=== PATIENT | male | born 1975 | race Caucasian/White ===

== ENCOUNTER → 2020-04-23 08:52 | Outpatient (BNVA) | payer OTHER, SELFPAY | PROVIDERS: PCP Physician Assistant; Referring Provider Physician Assistant; Visit Provider Urology | DX: N40.1 Benign prostatic hyperplasia with lower urinary tract symptoms (principal); N52.1 Erectile dysfunction due to diseases classified elsewhere; N50.89 Other specified disorders of the male genital organs | CPT/HCPCS: 81003 ==

== ENCOUNTER 2020-10-20 20:40 | Emergency (ER) | payer OTHER, SELFPAY ==
[2020-10-20] VITALS (8 sets, daily range): BP systolic 134–174; BP diastolic 90–133; PULSE 67–93; RESP 9–20; TEMP 36.3; O2SAT 91–96; BMI 25.8
--- NOTE | 2020-10-20 20:52 | W.ED.AMS ---
HPI - Altered Mental Status General: Chief Complaint: Altered Mental Status Stated Complaint: AMS Time Seen by Provider: 10/20/20 20:51 History of Present Illness: HPI narrative: Mr. Landon is a 45-year-old gentleman without pertinent past medical history presents to the emergency department due to altered mental status. Reportedly he was picked up by EMS where he is found unresponsive and responded to Narcan. Patient denies substance abuse and endorses being in the hot sun all day. He otherwise denies changes in health. Cannot think of any specific exacerbating or alleviating factors. History is otherwise limited by relative somnolence. Review of Systems General: Reports: 10 or more systems reviewed and unremarkable except in HPI and below Narrative: Limited due to mental status change PFS ED PFSH: Medical History BPH loc w urin obs/LUTS Erectile dysfunction due to diseases classified elsewhere Hypertension Scrotal mass Family History Family/Other CAD (coronary artery disease) Hypertension Lung disease Diabetes Social History Smoking and tobacco status: current every day smoker smokeless tobacco Alcohol intake: never Marital status: Single Current occupational status: employed Physical Exam Narrative: EXAM NARRATIVE: GENERAL/CONSTITUTIONAL -somewhat ill appearing. No acute distress. Somnolent Eyes - PERRL, no conjunctival injection ENMT - Atraumatic external nose and ears. Moist mucous membranes NECK - supple. trachea midline CARDIOVASCULAR - regular rate and rhythm. Peripheral pulses 2+ and equal RESPIRATORY -clear to auscultation bilaterally. No retractions or accessory muscle use. ABDOMEN/GI - Nontender, Nondistended. No tenderness to percussion or evidence of peritonitis MSK - Extremities without obvious deformity or tenderness to palpation SKIN - Warm, Dry NEURO - alert but somnolent and disoriented. Patient moves all extremities equally. On cranial nerve exam the patient is noted to have disconjugate gaze. Course ED course: - Patient was seen and evaluated by me at bedside - Patient placed on cardiac monitors, IV access obtained - Initial evaluation notable for abdomen - Labs and imaging obtained and reviewed - Labs notable for no significant abnormality to explain the patient's symptoms. - Imaging notable for subdural hemorrhages. As such and given patient's mental status patient was sent back to CT scanner and no additional traumatic injuries were identified. - Transfer arrangements were started immediately upon notification of CT results -The patient had decreased respiratory rate and Narcan given. - Upon serial reexamination after treatment the patient was mildly improved though patient's mental status and respiratory status remained concerning - Based on patient history, evaluation, labs, and imaging as interpreted the most likely cause of the patient's condition is subdural hemorrhages of unclear etiology though given history traumatic mechanism is considered most likely - The results of ED evaluation were discussed with the patient including plan for transfer due to requirement for level of care not available if discharged to prevent significant worsening/deterioration. -Patient to the emergency department with area EMS crew mildly improved with improvement in consistent respiratory rate. Vital Signs: Vital signs: Vital Signs Temperature 97.4 F L 10/20/20 20:41 Pulse Rate 73 10/20/20 23:40 Respiratory Rate 12 10/20/20 23:40 Blood Pressure 149/94 10/20/20 23:40 Pulse Oximetry 96 10/20/20 23:40 MDM - Altered Mental Status Medical Records: Attestation: I reviewed the patient's medical records. Lab Data: Attestation: I reviewed the patient's lab results. Labs: Lab Results 10/20/20 10/20/20 10/20/20 Range/Units 20:10 20:10 22:16 WBC 9.6 (4.0-10.0) 10^3/ uL RBC 6.05 H (4.1-5.3) 10^6/u L Hgb 17.7 H (11.7-16.6) g/dL Hct 55.1 H (42.0-52.0) % MCV 91.1 (80-94) fl MCH 29.3 (28.0-34.0) pg MCHC 32.1 (30.0-36.0) g/dL RDW 13.2 (12.1-15.1) % Plt Count 287 (130-400) 10^3/c mm MPV 10.5 H (7.4-10.4) fL Neut % (Auto) 46.7 % Lymph % (Auto) 42.7 % [place] % (Auto) 6.9 % Eos % (Auto) 2.6 % Baso % (Auto) 0.7 % Neut # (Auto) 4.47 (1.8-7.7) 10^3/u L Lymph # (Auto) 4.1 (0.8-4.8) 10^3/u L [place] # (Auto) 0.7 (0.2-0.9) 10^3/u L Eos # (Auto) 0.3 (0.0-0.8) 10^3/u L Baso # (Auto) 0.1 (0.0-0.1) 10^3/u L Nucleated RBC % (a uto) 0 % Nucleated RBCs # 0.0 /100WBC Sodium 139 (136-145) mmol/L Potassium 4.1 (3.5-5.1) mmol/L Chloride 99 (98-107) mmol/L Carbon Dioxide 27 (22-29) mmol/L Anion Gap 17.1 (5-19) BUN 8 (6-20) mg/dL Creatinine 1.5 H (0.7-1.2) mg/dL GFR Calculation 50.2 L (90-130) mL/min Glucose 147 H (65-115) mg/dL POC Glucose 86 (70-110) mg/dL Calculated Osmolal ity 289 (285-295) mOsm/k g Calcium 9.7 (8.5-10.5) mg/dL Salicylates < 0.3 L (3-10) mg/dL Acetaminophen < 5.0 L (10-30) ug/mL Ethyl Alcohol < 10 (0-10) mg/dL Critical Care Time Critical Care Time: Critical Care Time: Yes Total Critical Care Time: 35 Attestation: Due to a high probability of clinically significant, life threatening deterioration, the patient required my highest level of preparedness to intervene emergently and I personally spent this critical care time directly and personally managing the patient. This critical care time included obtaining a history; examining the patient; pulse oximetry; ordering and review of laboratory and imaging studies; arranging urgent treatment with development of a management plan; evaluation of patient's response to treatment; frequent reassessment; and, discussions with other providers. Time was exclusive of separately billable procedures and treating other patients and teaching time. 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
--- NOTE | 2020-10-20 20:58 | XRR_ITS ---
PROCEDURE INFORMATION: Exam: XR Chest Exam date and time: 10/20/2020 8:58 PM Age: 45 years old Clinical indication: Shortness of breath; Patient HX: AMS; Additional info: Hypoxemia TECHNIQUE: Imaging protocol: XR of the chest. Views: 1 view. COMPARISON: No relevant prior studies available. FINDINGS: Lungs: Unremarkable. No consolidation. Pleural spaces: Unremarkable. No pleural effusion. No pneumothorax. Heart/Mediastinum: Unremarkable. No cardiomegaly. Bones/joints: Unremarkable. XR/XR chest 1V portable [id number] IMPRESSION: No acute findings.
--- NOTE | 2020-10-20 20:59 | CTR_ITS ---
PROCEDURE INFORMATION: Exam: CT Head Without Contrast Exam date and time: 10/20/2020 8:59 PM Age: 45 years old Clinical indication: Altered mental status/memory loss; Patient HX: PT found unrepsponsive at gas station. ; Additional info: AMS TECHNIQUE: Imaging protocol: Computed tomography of the head without contrast. Radiation optimization: All CT scans at this facility use at least one of these dose optimization techniques: automated exposure control; mA and/or kV adjustment per patient size (includes targeted exams where dose is matched to clinical indication); or iterative reconstruction. COMPARISON: No relevant prior studies available. RADIATION DOSE METRICS: Total DLP (mGy-cm): 1271.34 FINDINGS: Brain: Subdural in the interhemispheric fissure posteriorly measuring 4 mm in thickness. Small acute subdural in bilateral tentorial leaflets measure 3 mm in maximal thickness. Cerebral ventricles: No ventriculomegaly. Paranasal sinuses: Visualized sinuses are unremarkable. No fluid levels. Mastoid air cells: Visualized mastoid air cells are well aerated. Bones/joints: Unremarkable. No acute fracture. Soft tissues: Unremarkable. CT/CT head wo con* [id number] IMPRESSION: Acute subdural hemorrhages in bilateral tentorial leaflets measuring 3 mm in maximal thickness. Small acute subdural hemorrhage in the posterior interhemispheric fissure measuring 4 mm in thickness. Radiation Dose CTDIVOL = (mGy): DLP = 1271.34 (mGy-cm)
[2020-10-20 21:06] LABS: Basophils # 0.1 10^3/uL (0.0-0.1); Basophils % 0.7 %; Eosinophils # 0.3 10^3/uL (0.0-0.8); Eosinophils % 2.6 %; Hematocrit 55.1 % (42.0-52.0); Hemoglobin 17.7 g/dL (11.7-16.6); Lymphocytes # 4.1 10^3/uL (0.8-4.8); Lymphocytes % 42.7 %; Mean Corpuscular HGB Conc 32.1 g/dL (30.0-36.0); Mean Corpuscular Hemoglobin 29.3 pg (28.0-34.0); Mean Corpuscular Volume 91.1 fl (80-94); Mean Platelet Volume 10.5 fL (7.4-10.4); Monocytes # 0.7 10^3/uL (0.2-0.9); Monocytes % 6.9 %; Neutrophils # 4.47 10^3/uL (1.8-7.7); Neutrophils % 46.7 %; Nucleated Red Blood Cells % 0 %; Platelet Count 287 10^3/cmm (130-400); Red Blood Count 6.05 10^6/uL (4.1-5.3); Red Cell Distribution Width 13.2 % (12.1-15.1); White Blood Count 9.6 10^3/uL (4.0-10.0)
[2020-10-20] MEDS: sodium chloride 0.9% 1,000 ML 999 ML IV (21:07)
[2020-10-20] MEDS: naloxone 0.4 mg/ml SDV 0.1 MG IVP ×2 (21:08→22:19)
[2020-10-20 21:31] LABS: Acetaminophen < 5.0 ug/mL (10-30); Alcohol Level < 10 mg/dL (0-10); Blood Urea Nitrogen 8 mg/dL (6-20); Calcium 9.7 mg/dL (8.5-10.5); Carbon Dioxide 27 mmol/L (22-29); Chloride 99 mmol/L (98-107); Glomerular Filtration Rate 50.2 mL/min (90-130); Glucose 147 mg/dL (65-115); Osmolality Calculated 289 mOsm/kg (285-295); Salicylate < 0.3 mg/dL (3-10); Sodium 139 mmol/L (136-145)
[2020-10-20 21:32] LABS: Anion Gap 17.1 (5-19); Potassium 4.1 mmol/L (3.5-5.1)
--- NOTE | 2020-10-20 21:35 | CTR_ITS ---
PROCEDURE INFORMATION: Exam: CT Chest Without Contrast; Diagnostic Exam date and time: 10/20/2020 9:35 PM Age: 45 years old Clinical indication: Patient HX: Patient found unresponsive at gas station. Hemorrhage found on head CT. ; Additional info: Trauma TECHNIQUE: Imaging protocol: Diagnostic computed tomography of the chest without contrast. Radiation optimization: All CT scans at this facility use at least one of these dose optimization techniques: automated exposure control; mA and/or kV adjustment per patient size (includes targeted exams where dose is matched to clinical indication); or iterative reconstruction. COMPARISON: CR (CHEST, ) 10/20/2020 9:07 PM RADIATION DOSE METRICS: Total DLP (mGy-cm): 1074.36 FINDINGS: Lungs: Unremarkable. No consolidation. No masses. Pleural spaces: Unremarkable. No pneumothorax. No pleural effusion. Heart: Unremarkable. No cardiomegaly. No pericardial effusion. Mediastinal space: Esophagus is mildly dilated and fluid-filled. Aorta: Unremarkable. No aortic aneurysm. Lymph nodes: Unremarkable. No enlarged lymph nodes. Bones/joints: Unremarkable. No acute fracture. Soft tissues: Small Bochdalek hernia. IMPRESSION: No evidence of acute injury. PROCEDURE INFORMATION: Exam: CT Abdomen And Pelvis Without Contrast Exam date and time: 10/20/2020 9:35 PM Age: 45 years old Clinical indication: Patient HX: Patient found unresponsive at gas station. Hemorrhage found on head CT. ; Additional info: Trauma TECHNIQUE: Imaging protocol: Computed tomography of the abdomen and pelvis without contrast. Radiation optimization: All CT scans at this facility use at least one of these dose optimization techniques: automated exposure control; mA and/or kV adjustment per patient size (includes targeted exams where dose is matched to clinical indication); or iterative reconstruction. COMPARISON: CR (CHEST, ) 10/20/2020 9:07 PM RADIATION DOSE METRICS: Total DLP (mGy-cm): 1074.36 FINDINGS: Lungs: The lung bases are clear. No effusion Liver: 2.1 cm left lobe hepatic cyst. Gallbladder and bile ducts: No wall thickening, pericholecystic fluid or stones. Pancreas: Normal. No ductal dilation. Spleen: Normal. No splenomegaly. Adrenal glands: Normal. No mass. Kidneys and ureters: 3 mm nonobstructing left renal pelvis stone. Stomach and bowel: Unremarkable. No obstruction. No mucosal thickening. Appendix: No evidence of appendicitis. Intraperitoneal space: Unremarkable. No free air. No significant fluid collection. Vasculature: Unremarkable. No abdominal aortic aneurysm. Lymph nodes: Unremarkable. No enlarged lymph nodes. Urinary bladder: Unremarkable as visualized. Reproductive: Unremarkable as visualized. Bones/joints: Unremarkable. No acute fracture. Soft tissues: Unremarkable. CT/CT chest abd pel wo con IMPRESSION: 1. No evidence of acute injury. 2. 3 mm nonobstructing left renal pelvis stone. Radiation Dose CTDIVOL = (mGy): DLP = 1074.36~1074.36 (mGy-cm)
--- NOTE | 2020-10-20 21:35 | CTR_ITS ---
PROCEDURE INFORMATION: Exam: CT Cervical Spine Without Contrast Exam date and time: 10/20/2020 9:35 PM Age: 45 years old Clinical indication: Other: Unresponsive. ; Patient HX: Patient found unresponsive at gas station. Hemorrhage found on head CT. ; Additional info: Trauma TECHNIQUE: Imaging protocol: Computed tomography images of the cervical spine without contrast. Radiation optimization: All CT scans at this facility use at least one of these dose optimization techniques: automated exposure control; mA and/or kV adjustment per patient size (includes targeted exams where dose is matched to clinical indication); or iterative reconstruction. COMPARISON: CT head wo con* [id number] 10/20/2020 9:07 PM RADIATION DOSE METRICS: Total DLP (mGy-cm): 517.19 FINDINGS: Bones/joints: No acute fracture. Normal alignment. Discs/Spinal canal/Neural foramina: No significant disc protrusion. No severe spinal canal stenosis. No significant neural foraminal narrowing. Lungs: Lung apices are normal. Soft tissues: Unremarkable. CT/CT cervical spin wo con* [id number] IMPRESSION: No acute findings. Radiation Dose CTDIVOL = (mGy): DLP = 517.19 (mGy-cm)
[2020-10-20 22:19] LABS: Glucose Point of Care 86 mg/dL (70-110)
--- NOTE | 2020-10-20 23:53 | PC.NURSE ---
pt out with AE 12
--- NOTE | 2020-11-20 10:06 | DCPLANNER ---
commercial property manager had message to speak with patient about getting a primary care physician. commercial property manager unable to speak with patient at this time, unable to leave a voicemail.
== END 2020-10-20 23:54 ==
PROVIDERS: Emergency Provider Emergency Medicine; PCP Physician Assistant
DX: R41.82 Altered mental status, unspecified (principal); I10 Essential (primary) hypertension; F17.290 Nicotine dependence, other tobacco product, uncomplicated
CPT/HCPCS: 36416; 70450; 71045; 71250; 72125; 74176; 80048; 80307; 82962; 85025; 96361; 96374; 96376; 99284; J2310; J7030

== ENCOUNTER → 2024-01-04 11:11 | Outpatient (BNVA) | payer OTHER, SELFPAY | PROVIDERS: PCP Physician Assistant; Visit Provider Internal Medicine Cardiovascular Disease | DX: I49.8 Other specified cardiac arrhythmias (principal); I45.10 Unspecified right bundle-branch block; R07.9 Chest pain, unspecified | CPT/HCPCS: 93005 ==

== ENCOUNTER → 2024-06-17 14:47 | Outpatient (BNVA) | payer OTHER, SELFPAY | PROVIDERS: PCP Family Medicine; Visit Provider Family Medicine | DX: I10 Essential (primary) hypertension (principal); Z12.5 Encounter for screening for malignant neoplasm of prostate; N40.1 Benign prostatic hyperplasia with lower urinary tract symptoms | CPT/HCPCS: 80053; 80061; 83036; 84153; 84439; 84443; 85025 ==

== ENCOUNTER → 2024-07-04 18:49 | Outpatient (BNVA) | payer OTHER, SELFPAY | PROVIDERS: PCP Family Medicine; Visit Provider Family Medicine Adult Medicine | DX: R07.81 Pleurodynia (principal); R55 Syncope and collapse; W19.XXXA Unspecified fall, initial encounter; Y92.009 Unspecified place in unspecified non-institutional (private) residence as the place of occurrence of the external cause; M19.011 Primary osteoarthritis, right shoulder | CPT/HCPCS: 71046 ==

== ENCOUNTER 2024-07-18 12:05 | Outpatient (CLI) | payer OTHER, SELFPAY ==
--- NOTE | 2024-07-18 12:09 | XR_ITS ---
WS: [id number] PA chest with bilateral rib detail, 7 views, 07/18/2024 Clinical Data: R rib pain but had trumatic fall from ladder Comparison: Two-view chest, 07/04/2024 Findings: The chest shows no nodules, masses or effusions. The diaphragms are flattened. The heart is normal. No pneumonia or pneumothorax is seen. The pulmonary vascularity is not increased. The ribs are intact. No subcutaneous emphysema is seen. XR/XR ribs BI 3V* [id number] Impression: 1. Hyperinflation. 2. Negative bilateral rib detail.
== END 2024-07-18 12:06 | disposition home or self-care (01) ==
PROVIDERS: Family Provider Family Medicine; PCP Family Medicine; Visit Provider Family Medicine
DX: R07.81 Pleurodynia (principal); R91.8 Other nonspecific abnormal finding of lung field
CPT/HCPCS: 71110

== ENCOUNTER 2024-07-29 08:50 | Outpatient (CLI) | payer OTHER, SELFPAY ==
--- NOTE | 2024-07-29 08:54 | FL_ITS ---
WS: [id number] FL barium swallow gastro [id number] REASON FOR EXAM: DYSPHAGIA/ESSENTIAL HTN FLUOROSCOPY TIME: 2min [id number] # OF SPOT FILMS: Multiple TECHNIQUE: Patient was examined in the standing PA and lateral projections, prone TINOCO, supine, and LPO. Swallowing of barium was monitored fluoroscopically and multiple rapid sequence spot films were obtained. FINDINGS: Cervical esophagus was unremarkable with no penetration, aspiration, or obstruction. Demonstrated a moderate hiatal hernia without significant Schatzki ring. No distal esophageal stricture. No significant gastroesophageal reflux was identified. No significant dysmotility. FL/FL barium swallow gastro [id number] IMPRESSION: Hiatal hernia as above without other abnormality.
== END 2024-07-29 08:51 | disposition home or self-care (01) ==
LOC: RAD 08:51
PROVIDERS: PCP Family Medicine; Visit Provider Family Medicine
DX: R13.10 Dysphagia, unspecified (principal); K44.9 Diaphragmatic hernia without obstruction or gangrene
CPT/HCPCS: 74220

== ENCOUNTER 2024-11-26 16:35 | Inpatient (IN) | payer OTHER, SELFPAY ==
[2024-11-26 16:41] VITALS: BP 158/95; PULSE 110; RESP 18; TEMP 36.4; O2SAT 96; BMI 25.8
--- OUTSIDE RECORDS SUMMARY | 2024-11-26 16:43 | XMS_ITS | Clinical Summary ---
Author Organization [employer] [facility] Address [address] Attn: Epic Prelude ADT REJI DILLON [address] Care Team Providers Care Athletic Agent Name Role Phone Tera, Saloni Rene MARTINEZ Primary Care Provider [phone] Allergies No known active allergies Medications lisinopriL (PRINIVIL) 20 mg tabletIndications: Essential hypertension Take 1 Tablet (20 mg) by mouth 2 times daily. 60 Tablet 4 5 Active hydroxychloroquine (PLAQUENIL,SOVUNA) 200 mg tablet Take 2 Tablets (400 mg) by mouth daily. 60 Tablet 2 5 Active neomycin-polymyxin -dexAMETHasone (MAXITROL) 3.5mg/mL-10,000 unit/mL-0.1 % suspensionIndicati ons:Acute bacterial conjunctivitis of both eyes Administer 2 Drops in both eyes every 4 hours. 10 mL 3 5 Active tamsulosin (FLOMAX) 0.4 mg capsuleIndications :Urinary retention TAKE TWO CAPSULES BY MOUTH DAILY 60 Capsule 3 5 Active celecoxib (CeleBREX) 200 mg capsuleIndications :Pain in joint involving multiple sites TAKE ONE CAPSULE BY MOUTH TWICE DAILY. 60 Capsule 1 5 Active Active Problems Problem Noted Date Diagnosed Date Bochdalek hernia 08/19/2024 Pharyngoesophageal dysphagia 08/19/2024 Gastroesophageal reflux disease without esophagi tis 08/19/2024 Altered bowel habits 08/19/2024 Chronic diarrhea 08/19/2024 Abdominal bloating 08/19/2024 Arthritis 10/06/2023 Benign hypertension 07/24/2023 Resolved Problems Problem Noted Date Diagnosed Date Resolved Date Allergy to lisinopril 07/24/20235 Angio-edema 07/24/2023 08/19/2024 Encounters Date Type Department Care Team Description 11/26/2024 Refill [facility] Tristan Weakley [address] [place] [address] Lizz Fairchild MD 11/06/2024 Refill [facility] [address] [place] [address] BrowningMay, PHYSICIAN AIDE Drug-induced erectile dysfunction 11/05/[address] [facility] [address] [place] [address] Lizz Fairchild MD Needs Appointment 10/29/2024 External Device Data [facility] ABSTRACTION Provider, Abstract 10/15/2024 External Device Data [facility] ABSTRACTION Provider, Abstract 10/08/2024 Orders Only [place] [address] [place] [address] Akbar Sesay MD 10/07/2024 1:10 PM CDT Office Visit [place] [address] [facility] [place] [address] Akbar Sesay MD Carpal tunnel syndrome, left (Primary Dx); Cubital tunnel syndrome, right; Cubital tunnel syndrome, left; Carpal tunnel syndrome, right 10/02/2024 External Device Data [facility] ABSTRACTION Provider, Abstract [facility] [address] [place] [address] Lizz Fairchild MD Pain in joint involving multiple sites 10/01/2024 Refill [facility] [address] [place] [address] BrowningMay, PHYSICIAN AIDE Urinary retention 09/24/2024 External Device Data [facility] ABSTRACTION Provider, Abstract 09/24/2024 External Device Data [facility] ABSTRACTION Provider, Abstract 09/11/2024 4:20 PM CDT Office Visit [facility] [address] [place] [address] Mic Choudhury FNP Acute nasopharyngitis (Primary Dx); Acute bacterial conjunctivitis of both eyes 09/11/2024 External Device Data [facility] ABSTRACTION Provider, Abstract 09/11/2024 External Device Data [facility] ABSTRACTION Provider, Abstract 09/05/2024 Telephone [facility] [address] [place] [address] Mic Choudhury FNP Primary Care Outreach (Called pt and left VM in regards to his referral for his hernia, was wondering if he had an appt scheduled yet. ) 08/29/2024 Telephone [facility] [address] [place] [address] Browningmay, ADE Provider Call from Last 3 Months Family History Medical History Relation Name Comments Heart Disease Brother Aryan landon at age 53 Heart Disease Father Ted landon at 45 Emphysema Mother Rachelle landon Copd Heart Disease Mother Rachelle landon at 63 Heart Disease Sister Ping landon at 43 Relation Name Status Comments Brothlaurel landon Alive Father Ted landon Alive Mother Rachelle landon Alive Sister Ping landon Alive Social History Tobacco Use Types Packs/Day Years Used Date Smoking Tobacco: Never Passive Smoke Exposure: Never Smokeless Tobacco: Current Chew Tobacco Cessation:Ready to Q uit: Not Asked; Counseling Given: Not Answered Alcohol Use Standard Drinks/Week Comments Yes 0 (1 standard drink = 0.6 oz pur e alcohol) 4 shots daily Feeling Safe Answer Date Recorded Are you in a relationship wi th someone who hurts you emotionally and/or physically? 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 Gender Identity Male 11/04/2023 8:00 PM CDT Sexual Orientation Not on file Last Filed Vital Signs Vital Sign Reading Time Taken Comments Blood Pressure 140/88 10/07/2024 1:03 PM CDT Pulse 100 09/11/2024 4:06 PM CDT Temperature 36.9 C (98.5 F) 09/11/2024 4:06 PM CDT Respiratory Rate 18 09/11/2024 4:06 PM CDT Oxygen Saturation 96% 09/11/2024 4:06 PM CDT Inhaled Oxygen Concentration - - Weight 74.4 kg (164 lb) 10/07/2024 1:03 PM CDT Height 167.6 cm (5' 6 ) 10/07/2024 1:03 PM CDT Body Mass Index 26.47 10/07/2024 1:03 PM CDT Plan of Treatment Health Maintenance Due Date Last Done Comments DTAP/TDAP/TD VACCINES (1 - Tdap) 1992 HEPATITIS B VACCINES (1 of 3 - 19+ 3-dose series) 02/28 ZOSTER VACCINE (1 of 2) 1992 COLORECTAL SCREENING 2018 Colorectal Cancer Screening 2018 FIT-DNA Q 3 years 2018 FIT/FOBT Q 1 year 2018 Flex Sig/CT Colonography Q 5 years 2018 COVID-19 Vaccine (2 - Kristal risk series) 09/11/2020 08/14/2020 Preventative Visit- Commercial 02/28/2024 INFLUENZA VACCINE (#1) 2024 Pre-Diabetes and Diabetes Screening 08/08/202608/08 Goals Goal Patient Goal Type Associated Problems Recent Progress Patient-Stated? Author HYPERTENSIO N CARE PLAN GOAL Care Plan RICK MYC HYPERTENSION CARE PLAN PROBLEM No Juaquin Walker Procedures Procedure Name Priority Date/Time Associated Diagnosis Comments HEMOGLOBIN A1C Routine 08/09/2023 9:00 AM CDT Essential hypertension from Last 3 Months or Most Recently Relevant to Health Maintenance Results * HEMOGLOBIN A1C (08/09/2023 9:00 AM CDT) HEMOGLOBIN A1C 5.5 <5.7 % of total Hgb [facility] Comment: For the purpose of screening for the presence of diabetes: <5.7% Consistent with the absence of diabetes 5.7-6.4% Consistent with increased risk for diabetes (prediabetes) > or =6.5% Consistent with diabetes This assay result is consistent with a decreased risk of diabetes. Currently, no consensus exists regarding use of hemoglobin A1c for diagnosis of diabetes in children. According to [place] Diabetes Association (ADA) guidelines, hemoglobin A1c <7.0% represents optimal control in non- diabetic patients. Different metrics may apply to specific patient populations. Standards of Medical Care in Diabetes(ADA). ESTIMATED AVERAGE GLUCOSE (MG/DL) 111 mg/dL [facility] ESTIMATED AVERAGE GLUCOSE (MMOL/L) 6.2 mmol/L [facility] Comment: This test was performed on the G[employer]ia misa c503 platform. Effective 05/15/23, a change in test platforms from the [employer] to the Gita misa c503 may have shifted HbA1c results compared to historical results. Based on laboratory validation testing conducted at [facility], the Gita platform relative to the Malcolm platform had an average increase in HbA1c value of < or = 0.3%. This difference is within accepted variability established by the National Glycohemoglobin Standardization Program. Note that not all individuals will have had a shift in their results and direct comparisons between historical and current results for testing conducted on different platforms is not recommended. Test Performed at: [facility] [id number] [address] [place] [address] Ailyn Lawrence MD Blood 08/09/2023 9:00 AM CDT 08/10/2023 3:03 AM CDT May [facility] CHEMISTRY ORDERABLES Final Resul t [facility] [phone] [facility] [address] [place] [address] from Last 3 Months or Most Recently Relevant to Health Maintenance Additional Health Concerns Active Problems Noted Date Diagnosed Date RICK MYC HYPERTENSION CARE PLAN PROBLEM 4 Insurance [id number] [facility] [place] [phone] Care Teams Athletic Agent Relationship Specialty Start Date End Date Saloni Haley DO [address] [place] [address] PCP - General Family Practice 08/19/24
--- OUTSIDE RECORDS SUMMARY | 2024-11-26 16:43 | XMS_ITS | Encounter Summary ---
Author Organization [facility] Address [address] [place] [address] Care Team Providers Care Bricklayer Apprentice Name Role Phone Saloni Haley Primary Care Provider [phone] Reason for Visit * Reason Comments Provider Call Encounter Details Date Type Department Care Team ([facility] Contact Info) Description 08/29/2024 Telephone [facility] [place] [address] [place] [address] [place], [facility] [address] [place] [address] Provider Call Social History Tobacco Use Types Packs/Day Years Used Date Smoking Tobacco: Never Passive Smoke Exposure: Never Smokeless Tobacco: Current Chew Alcohol Use Standard Drinks/Week Comments Yes 0 (1 standard drink = 0.6 oz pur e alcohol) 4 shots daily Feeling Safe Answer Date Recorded Are you in a relationship wi th someone who hurts you emotionally and/or physically? 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 Topic: [id number] Call >> Aug 29, 2024 3:31 PM Arminda Snell wrote: Caller is requesting to speak with Clinical Care Team. Caller Name: Carrie rainey Callback Number: [phone] Clinician Type: Other healthcare professional not listed above Call Notes: Carrie Georgedanyel lugo redd says the CT neck was denied. The provider can either appeal or resubmit additional clnicals. Is this addressing an immediate patient care need? No documented in this encounter Plan of Treatment Not on file documented as of this encounter Goals Goal Patient Goal Type Associated Problems Recent Progress Patient-Stated? Author HYPERTENSIO N CARE PLAN GOAL Care Plan RICK MYC HYPERTENSION CARE PLAN PROBLEM No Juaquin Walker documented as of this encounter Visit Diagnoses Not on filedocumented in this encounter Additional Health Concerns Active Problems Noted Date Diagnosed Date RICK MYC HYPERTENSION CARE PLAN PROBLEM 4 documented as of this encounter Care Teams Bricklayer Apprentice Relationship Specialty Start Date End Date Saloni Haley DO [address] [place] [address] PCP - General Family Practice 08/19/24 documented as of this encounter
--- OUTSIDE RECORDS SUMMARY | 2024-11-26 16:43 | XMS_ITS | Clinical Summary ---
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
--- OUTSIDE RECORDS SUMMARY | 2024-11-26 16:43 | XMS_ITS | Encounter Summary ---
Author Organization [facility] Address 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
[2024-11-26 17:00] LABS: Hematocrit 51.5 % (37-53); Hemoglobin 17.70 g/dL (11.27-16.99); Mean Corpuscular HGB Conc 34.4 g/dL (30-55); Mean Corpuscular Hemoglobin 30.2 pg (27-33); Mean Corpuscular Volume 87.9 fl (82-101); Nucleated Red Blood Cells % 0 %; Platelet Count 246 10^3/cmm (157-399); Red Blood Count 5.86 10^6/uL (3.85-5.65); White Blood Count 11.72 10^3/uL (3.29-11.43)
[2024-11-26 17:18] LABS: Alanine Aminotransferase 16 U/L (0-41); Albumin Level 4.1 g/dL (3.5-5.2); Alkaline Phosphatase 99 U/L (40-130); Anion Gap 15.9 (5-19); Aspartate Amino Transferase 12 U/L (0-40); Blood Urea Nitrogen 10 mg/dL (6-20); Calcium 9.3 mg/dL (8.5-10.5); Carbon Dioxide 23 mmol/L (22-29); Chloride 101 mmol/L (98-107); Creatinine Clr Calc Pharmacy 69.3355; Globulin 3.1 g/dL (1.3-4.6); Glucose 87 mg/dL (65-115); Lipase 15 U/L (13-60); Osmolality Calculated 280 mOsm/kg (285-295); Potassium 3.9 mmol/L (3.5-5.1); Sodium 136 mmol/L (136-145); Total Protein 7.2 g/dL (6.6-8.7)
[2024-11-26 17:19] LABS: Lactic Sepsis W/Reflex 1.1 mmol/L (0.5-2.2)
--- NOTE | 2024-11-26 18:16 | CTR_ITS ---
PROCEDURE INFORMATION: Exam: CT Abdomen And Pelvis With Contrast Exam date and time: 11/26/2024 6:39 PM Age: 49 years old Clinical indication: Abdominal pain; Additional info: Llq pain, blood in stool TECHNIQUE: Imaging protocol: Computed tomography of the abdomen and pelvis with contrast. Radiation optimization: All CT scans at this facility use at least one of these dose optimization techniques: automated exposure control; mA and/or kV adjustment per patient size (includes targeted exams where dose is matched to clinical indication); or iterative reconstruction. Contrast material: OMNIPAQUE 350; Contrast volume: 100 ml; Contrast route: INTRAVENOUS (IV); COMPARISON: RF FL barium swallow gastro [id number] 07/29/2024 8:57 AM RADIATION DOSE METRICS: Total DLP (mGy-cm): 518.77 FINDINGS: Liver: No discrete liver lesions are apparent. Smooth hepatic contour. Gallbladder and biliary ducts: No gallbladder distension or inflammation. No calcified gallstones are apparent. No common bile duct abnormality is evident. Pancreas: No evidence of pancreatitis. No ductal dilation. Spleen: Spleen is within normal limits. Adrenal glands: Adrenal glands are within expected limits. Kidneys and ureters: Small nonobstructive calculi bilaterally. Some mild renal cortical scarring. Some subcentimeter low-attenuation cortical foci predominantly in the right kidney is too small to characterize. No hydronephrosis. No ureteral stones. Stomach and bowel: Acute sigmoid diverticulitis. There is a small focus of gas in the adjacent mesentery indicating contained perforation. No abscess. Small bowel loops are normal caliber. Stomach is nondistended. Appendix: No evidence of appendicitis. Intraperitoneal space: Inflammatory stranding about the proximal sigmoid colon with contained region of perforation but no abscess. Vasculature: No abdominal aortic aneurysm. Lymph nodes: No pathologically enlarged lymph nodes by CT size criteria. Urinary bladder: Unremarkable as visualized. Reproductive: Unremarkable as visualized. Bones/joints: No acute osseous abnormalities. Soft tissues: Unremarkable. CT/CT abdomen pelvis w con* [id number] IMPRESSION: 1. Acute, perforated sigmoid diverticulitis with no abscess. 2. Nonobstructive nephrolithiasis.
--- NOTE | 2024-11-26 18:28 | ED_ITS ---
HPI - Abdominal Pain 2 General: Chief Complaint: Abdominal Pain Stated Complaint: abd pain, n/d Time Seen by Provider: 11/26/24 18:09 Source: patient Mode of arrival: ambulatory Limitations: no limitations History of Present Illness: Patient is a 49-year-old male with past medical history of alcohol use disorder and hypertension who is presenting to the emergency department complaining of abdominal pain for the past 3 days. States that he had some rectal bleeding that preceded the pain, since pain has been in the left lower quadrant. Denies history of diverticulitis, states he has a history of ventral hernia however and this is currently being worked up by surgery. Does note that he feels nauseous, but no vomiting. He states that he has had looser stools. Still has his appendix and gallbladder. Does not report taking any medications for the pain. Mildly uncomfortable appearing at this time secondary to the pain. No fevers or chills are reported, no urinary symptoms. MD elicited complaint: abdominal pain Pertinent past history: other (Hernia) Onset (ago): day(s) (3) Pain Consistency: constant Location: LLQ Severity: moderate Quality: cramping and stabbing Radiation: none Associated Symptoms: Reports change in stool character, diarrhea, hematochezia and nausea; Denies bloating, chills, constipation, dysuria, fever(s) and vomiting Related Data Home Medications ?Medication ?Instructions ?Recorded ?Confirmed celecoxib 200 mg capsule 200 mg PO BID 06/17/2407/18 hydroxychloroquine 200 mg tablet mg PO 07/04/24 pregabalin 75 mg capsule mg PO 07/04/24 07/18/24 Previous Rx's ?Medication ?Instructions ?Recorded sildenafil 100 mg tablet 100 mg PO DAILY PRN sexual 0 04/23/20 activity #20 tabs tamsulosin 0.4 mg capsule (Flomax) 0.8 mg (2 x 0.4 mg) PO DAILY #60 04/23/20 caps lidocaine 5 % topical patch 2 patch topical DAILY #30 ea 07/18/24 lisinopril 40 mg tablet 40 mg PO DAILY #90 tabs 06/28 04/23 Allergies Allergy/AdvReac Type Severity Reaction Status Date / Time No Known Allergies Allergy Verified 07/18/24 11:21 Review of Systems 2 General: Reports: 10 or more systems reviewed and unremarkable except in HPI and below Const: Denies: fever(s), chills, change in appetite, change in weight or diaphoresis ENMT: Denies: throat pain or hoarseness Card: Denies: chest pain, palpitations or lightheadedness Resp: Denies: dyspnea, productive cough or wheezing GI: Reports: abdominal pain, nausea, diarrhea, change in stool character and hematochezia; Denies: vomiting, constipation or bloating : Denies: flank pain, difficulty urinating, dysuria, urinary frequency or urinary urgency Musc: Denies: neck pain or back pain Skin/Breast: Denies: rash or new lesions Neuro: Denies: headache(s) or dizziness PFSH ED 2 PFSH: Medical History Fall as cause of accidental injury at home as place of occurrence Right-sided chest wall pain Syncope and collapse Dysphagia Alcohol use disorder Scrotal mass Erectile dysfunction due to diseases classified elsewhere BPH loc w urin obs/LUTS Hypertension Family History Family/Other CAD (coronary artery disease) Hypertension Lung disease Diabetes Social History Smoking and tobacco/nicotine status: never used tobacco/nicotine Alcohol intake: current Alcohol intake frequency: 0-2 Drinks per Day Substance/Drug Use: never Marital status: Single Current occupational status: employed Physical Exam 2 Const: COMMON NORMALS: patient oriented x3, alert and well nourished G ENERAL APPEARANCE: cooperative ORIENTATION/CONSCIOUSNESS: Yes awake OTHER: Uncomfortable appearing, but nontoxic Neck/C-Spine: COMMON NORMALS: full ROM, supple and no meningeal signs Resp: COMMON NORMALS: normal respiratory effort, No retractions, No use of accessory muscles and clear to auscultation bilaterally AUSCULTATION: clear to auscultation bilaterally, no crackles, no rales, no rhonchi and no wheezes Cardio: COMMON NORMALS: regular rhythm, No gallops present (Cardio), No clicks present (Cardio), No murmurs present (Cardio) and No rub (Cardio) RATE: t achycardic RHYTHM: regular rhythm GI: COMMON NORMALS: No hepatosplenomegaly present and no masses A USCULTATION: Yes normoactive bowel sounds PALPATION: Yes Tenderness to palpation present (GI) Details: LLQ, Yes Guarding due to palpation present (GI) (Involuntary) in the LLQ and Yes No hepatosplenomegaly present RECTAL EXAM: Y es deferred OTHER: Mild distention noted : COMMON NORMALS: Yes no CVA tenderness BLADDER/KIDNEY EXAM: Yes no CVA tenderness Back/Pelvis: COMMON NORMALS: no CVA tenderness Extremity: COMMON NORMALS: normal to inspection and full ROM Neuro: COMMON NORMALS: patient oriented x3, moves all extremities, no focal motor deficits and no sensory deficits noted SENSORIUM/ORIENTATION: Yes alert MENINGEAL SIGNS: Yes no meningeal signs Psych: COMMON NORMALS: mental status grossly normal, cooperative and speech normal SPEECH: Yes normal speech Skin: COMMON NORMALS: no rashes or lesions noted GENERAL SKIN EXAM: no rashes or lesions noted Course 2 Vital Signs: Vital signs: Vital Signs Temperature 98.4 F 11/26/24 23:21 Pulse Rate 103 H 11/26/24 23:21 Respiratory Rate 16 11/26/24 23:21 Blood Pressure 146/94 11/26/24 23:21 Pulse Oximetry 96 11/26/24 23:21 Oxygen Delivery Me thod Room Air 11/26/24 23:21 MDM - Abdominal Pain Medical Decision Making Patient presented with left lower quadrant pain and rectal bleeding over the past 3 days. Uncomfortable appearing on exam, tender to palpation in the left lower quadrant. Is tachycardic and has been so throughout ED stay, likely secondary to pain though he does have quite a bit of relief after morphine here in the emergency department. Leukocytosis mild with labs, CRP significantly elevated as well to 175. CT abdomen and pelvis showing an acute perforated sigmoid diverticulitis, however no sign of abscess. He is started on IV antibiotics for this. Spoke with on-call general surgeon, Dr. Valladares, who agrees to consult the patient in the hospital and to make n.p.o. after midnight. Spoke with hospitalist, Dr. Perkins, agreeing to except the patient into the hospital. Informed patient of this plan, he agrees and all other questions and concerns addressed. Lab Data 11/26/24 16:51 11/26/24 16:51 Labs/Radiology: Radiology Impressions Abdomen/Pelvis CT 11/26/24 18:16 IMPRESSION: 1. Acute, perforated sigmoid diverticulitis with no abscess. 2. Nonobstructive nephrolithiasis. ADDENDUM: 11/26/241940 ADDENDUM: THIS REPORT CONTAINS FINDINGS THAT MAY BE CRITICAL TO PATIENT CARE. The findings were verbally communicated via telephone conference with CHARLOTTE AKHTAR at 7:39 PM CDT on 11/26/2024. The findings were acknowledged and understood. Laboratory Results WBC 11.72 10^3/uL (3.29-11.43) H 11/26/24 16:51 RBC 5.86 10^6/uL (3.85-5.65) H 11/26/24 16:51 Hgb 17.70 g/dL (11.27-16.99) H 11/26/24 16:51 Hct 51.5 % (37-53) 11/26/24 16:51 MCV 87.9 fl (82-101) 11/26/24 16:51 MCH 30.2 pg (27-33) 11/26/24 16:51 MCHC 34.4 g/dL (30-55) 11/26/24 16:51 RDW 12.2 % (12.1-15.1) 11/26/24 16:51 Plt Count 246 10^3/cmm (157-399) 11/26/24 16:51 MPV 9.8 fL (7.4-10.4) 11/26/24 16:51 Neut % (Auto) 83.4 % 11/26/24 16:51 Lymph % (Auto) 9.1 % 11/26/24 16:51 [place] % (Auto) 6.4 % 11/26/24 16:51 Eos % (Auto) 0.3 % 11/26/24 16:51 Baso % (Auto) 0.4 % 11/26/24 16:51 Neut # (Auto) 9.76 10^3/uL (1.8-7.7) H 11/26/24 16:51 Lymph # (Auto) 1.1 10^3/uL (0.8-4.8) 11/26/24 16:51 [place] # (Auto) 0.8 10^3/uL (0.2-0.9) 11/26/24 16:51 Eos # (Auto) 0.0 10^3/uL (0.0-0.8) 11/26/24 16:51 Baso # (Auto) 0.1 10^3/uL (0.0-0.1) 11/26/24 16:51 Nucleated RBC % (auto) 0 % 11/26/24 16:51 Nucleated RBCs # 0.0 /100WBC 11/26/24 16:51 Sodium 136 mmol/L (136-145) 11/26/24 16:51 Potassium 3.9 mmol/L (3.5-5.1) 11/26/24 16:51 Chloride 101 mmol/L (98-107) 11/26/24 16:51 Carbon Dioxide 23 mmol/L (22-29) 11/26/24 16:51 Anion Gap 15.9 (5-19) 11/26/24 16:51 BUN 10 mg/dL (6-20) 11/26/24 16:51 Creatinine 1.2 mg/dL (0.7-1.2) 11/26/24 16:51 GFR Calculation 63.8 mL/min (90-130) L 11/26/24 16:51 Glucose 87 mg/dL (65-115) 11/26/24 16:51 Calculated Osmolality 280 mOsm/kg (285-295) L 11/26/24 16:51 Lactic Acid 1.1 mmol/L (0.5-2.2) 11/26/24 16:51 Calcium 9.3 mg/dL (8.5-10.5) 11/26/24 16:51 Total Bilirubin 2.3 mg/dL (0.15-1.2) H 11/26/24 16:51 AST 12 U/L (0-40) 11/26/24 16:51 ALT 16 U/L (0-41) 11/26/24 16:51 Alkaline Phosphatase 99 U/L (40-130) 11/26/24 16:51 C-Reactive Protein 174.8 mg/L (0.0-4.9) H 11/26/24 16:51 Total Protein 7.2 g/dL (6.6-8.7) 11/26/24 16:51 Albumin 4.1 g/dL (3.5-5.2) 11/26/24 16:51 Globulin 3.1 g/dL (1.3-4.6) 11/26/24 16:51 Lipase 15 U/L (13-60) 11/26/24 16:51 All radiology interpretation(s) finalized by discharge Discharge Plan Discharge Patient Disposition: Admitted As Inpatient Admit Provider: Sam Perkins Clinical Impression: Diverticulitis, Perforated diverticulum Condition: Stable Coding Level of Care Code ED Hospice Spiritual Care Coordinator for Amilcar Hampton
[2024-11-26 18:36] VITALS: BP 138/100; PULSE 101; RESP 18; O2SAT 96
[2024-11-26] MEDS: iohexol 350 mg/mL 500 mL Btl (per mL) IV (18:47)
[2024-11-26 19:00] VITALS: BP 135/90; PULSE 92; RESP 16; O2SAT 97
[2024-11-26] MEDS: morphine 4 mg/mL SDV 1 mL IVP (19:11)
[2024-11-26] MEDS: ondansetron 2 mg/ML SDV 2 mL 4 MG IVP (19:12)
--- NOTE | 2024-11-26 19:17 | PC.NURSE ---
this nurse asked pt for a urine sample. pt states he can't urinate on command . this nurse told pt we could do a quick straight cath to get urine. pt yelled no you will not. you can either give me water or just wait until i need to pee. pt visitor also yelled that we were not to cath pt. this nurse told pt he couldn't have anything to eat or drink until all of his labs and tests came back per ER policy. pt stated you can just wait then . this nurse informed provider.
[2024-11-26] MEDS: heparin 5,000 unit/mL INJ 1 mL 5000 UNIT SUBCUT (21:02)
[2024-11-26] MEDS: pantoprazole 40 mg SDV IVP (21:03)
[2024-11-26] MEDS: piperacillin-tazobactam 3.375 GM in sodium chloride 0.9% (plus) 50 ML IV (21:03)
[2024-11-26 21:24] VITALS: BP 125/81; PULSE 89; RESP 16; O2SAT 94
[2024-11-26 22:23] VITALS: BP 123/81; PULSE 86; RESP 14; O2SAT 94
[2024-11-26 23:05] VITALS: BMI 25.8
[2024-11-26 23:21] VITALS: BP 146/94; PULSE 103; RESP 16; TEMP 36.9; O2SAT 96
--- NOTE | 2024-11-26 23:56 | PM.HP ---
Providers/Chief Complaint Admitting Physician: Sam Perkins MD Primary Care Provider: Greg Dean MD Chief Complaint: abd pain, n/d History of Present Illness As per the patient and the previous retrospective notes Greg Landon is a 49 year old male with past medical history of hypertension, arthritis on hydroxychloroquine, hyperlipidemia, BPH came to the emergency due to abdominal pain. The patient reported having blood in the stools over the weekend and later it resolved and abdominal pain started from 1 day. He was having mild nausea but no active vomiting no jaundice skin. No fever or chills, no chest pain, no chest pressure, no orthopnea or PND. No lower leg swellings. The patient did not report any recent vaccinations, recent travels or any outside food. He did not report such abdominal pain in the past. He is active alcohol drinker and currently been drinking since 10 to 20 years. Active marijuana smoker. Review of Systems General: Reports: 10 or more systems reviewed and unremarkable except in HPI and below Medications/Allergies Home Medications ?Medication ?Instructions ?Recorded ?Confirmed ?Last Taken ?Type sildenafil 100 mg tablet 100 mg PO DAILY PRN sexual 04/23/20 07/18/24 Unknown Rx activity #20 tabs tamsulosin 0.4 mg capsule (Flomax) 0.8 mg (2 x 0.4 mg) PO DAILY #60 04/23/20 07/18/24 Unknown Rx caps celecoxib 200 mg capsule 200 mg PO BID 06/17/24 07/18/24 Unknown History hydroxychloroquine 200 mg tablet mg PO 07/04/24 07/18/24 Unknown History pregabalin 75 mg capsule mg PO 07/04/24 07/18/24 Unknown History lidocaine 5 % topical patch 2 patch topical DAILY #30 ea 07/18/24 07/18/24 Unknown Rx lisinopril 40 mg tablet 40 mg PO DAILY #90 tabs 07/18/24 07/18/24 Unknown Rx Allergies Allergy/AdvReac Type Severity Reaction Status Date / Time No Known Allergies Allergy Verified 07/18/24 11:21 PFSH Acute PFSH: Medical History (Updated 11/26/24 @ 19:52 by AUDREY Tate) Fall as cause of accidental injury at home as place of occurrence Right-sided chest wall pain Syncope and collapse Dysphagia Alcohol use disorder Scrotal mass Erectile dysfunction due to diseases classified elsewhere BPH loc w urin obs/LUTS Hypertension Family History Family/Other CAD (coronary artery disease) Hypertension Lung disease Diabetes Social History Smoking and tobacco/nicotine status: never used tobacco/nicotine Alcohol intake: current Alcohol intake frequency: 0-2 Drinks per Day Substance/Drug Use: never Marital status: Single Current occupational status: employed Vitals/I&O/Wt Last Vital Signs Temp 98.4 F 11/26/24 23:21 Pulse 103 H 11/26/24 23:21 Resp 16 11/26/24 23:21 BP 146/94 11/26/24 23:21 Pulse Ox 96 11/26/24 23:21 O2 Del Method Room Air 11/26/24 23:21 11/26/24 11/26/24 11/27/24 14:59 22:59 06:59 Intake Total 1000 / 1000 Balance 1000 / 1000 Weight last 48 hrs Weight 73.028 kg Weight 72.575 kg Weight 72.575 kg Physical Exam Narrative: General: Alert and oriented, lying with mild distress due to abdominal pain but no shortness of breath and able to speak in full sentences HEENT: Normocephalic, atraumatic, grossly unremarkable exam Cardio: normal rate rhythm, normal S1-S2 without any murmurs, rubs, or gallops and JVD normal Respiratory: normal vascular breathing on auscultation without any wheezes, stridor, rhonchi GI: Abdomen soft, distended and tender on deep palpation, normoactive bowel sounds present all 4 quadrants, no organomegaly cruciated Neuro: intact cranial nerves motor and sensory and cerebellar/coordination function without any focal neurological deficit Behavior: Appropriate and cooperative Extremities: Adequate palpable pulses, no edema or cyanosis observed Skin: grossly unremarkable exam Data 11/26/24 16:51 11/26/24 16:51 A&P Assessment and plan 1. Perforated diverticulum: - Continue Zosyn -N.p.o. as per surgery recommendation and to start clear fluids if stable from tomorrow - Continue fluids and adequate hydration - Surgery on board and will follow-up 2. Diverticulitis: As mentioned above 3. Benign essential HTN: Lisinopril 40 mg daily to start after confirming the medication Monitor hemodynamics 4. BPH loc w urin obs/LUTS: Patient on tamsulosin total 0.8 mg dose daily, to resume home dose after medication reconciliation 5. Polyarthralgia: Patient is on hydroxychloroquine resume medications after reconciliation Also on pregabalin possible associated neuropathy and pain however need reconciliation before starting 6. Alcohol use disorder: Currently stable, monitor for any signs of withdrawals PDMP PDMP Reviewed: Not Reviewed Attestations Medical Necessity Statement*: Greg Landon's hospital stay will require greater than 2 midnights for Acute perforated sigmoid diverticulitis without abscess with follow-up from surgery Time Spent in Patient Care: 16 - 35 minutes (>than 50% of time spent in counselling and/or direct pt care on unit). Other Attestations: Patient condition has been discussed at length with the patient/family, I have independently reviewed the chart labs imaging/diagnostics/EKG. the goals of care and code status with the patient/family/NOK/legal teleservices representative, and documented accordingly. The patient/family has been informed about the current condition and further plan of care. Agreed with the plan of care and understood without any language barrier. Every effort was made to ensure accuracy of intensive care anaesthetist. Any obvious errors or omissions should be clarified with the author of the document. Coding Level of Care Code 40783 Diagnoses Perforated diverticulum K57.80 Diverticulitis K57.92 Benign essential HTN I10 BPH loc w urin obs/LUTS N40.1 Polyarthralgia M25.50 Alcohol use disorder F10.90
[2024-11-27] VITALS (7 sets, daily range): BP systolic 104–157; BP diastolic 58–82; PULSE 83–96; RESP 16–18; TEMP 36.8–37.2; O2SAT 91–95
[2024-11-27] MEDS: piperacillin-tazobactam 3.375 GM in sodium chloride 0.9% (plus) 50 ML IV ×3 (04:18→21:22)
[2024-11-27 04:53] LABS: Hematocrit 45.4 % (37-53); Hemoglobin 15.40 g/dL (11.27-16.99); Mean Corpuscular HGB Conc 33.9 g/dL (30-55); Mean Corpuscular Hemoglobin 30.2 pg (27-33); Mean Corpuscular Volume 89.0 fl (82-101); Nucleated Red Blood Cells % 0 %; Platelet Count 211 10^3/cmm (157-399); Red Blood Count 5.10 10^6/uL (3.85-5.65); White Blood Count 9.03 10^3/uL (3.29-11.43)
[2024-11-27] MEDS: morphine 4 mg/mL SDV 1 mL 2 MG IVP (04:58)
[2024-11-27 05:18] LABS: Alanine Aminotransferase 12 U/L (0-41); Albumin Level 3.5 g/dL (3.5-5.2); Alkaline Phosphatase 80 U/L (40-130); Anion Gap 15.9 (5-19); Aspartate Amino Transferase 11 U/L (0-40); Blood Urea Nitrogen 9 mg/dL (6-20); Calcium 8.3 mg/dL (8.5-10.5); Carbon Dioxide 22 mmol/L (22-29); Chloride 102 mmol/L (98-107); Creatinine Clr Calc Pharmacy 64.1743; Globulin 2.7 g/dL (1.3-4.6); Glucose 100 mg/dL (65-115); Osmolality Calculated 281 mOsm/kg (285-295); Potassium 3.9 mmol/L (3.5-5.1); Sodium 136 mmol/L (136-145); Total Protein 6.2 g/dL (6.6-8.7)
[2024-11-27 06:36] LABS: Glucose Urine UA Negative (Normal); Nitrate Urine Negative (Negative)
[2024-11-27 07:00] LABS: Specific Gravity, Urine 1.086 (1.005-1.030); UA Manual Slide Review YES
--- NOTE | 2024-11-27 07:48 | PC.OT ---
OT EVALUATION ORDERS RECEIVED; HOLD DUE TO SCHEDULED SX TODAY
[2024-11-27] MEDS: heparin 5,000 unit/mL INJ 1 mL 5000 UNIT SUBCUT ×2 (07:57→21:22)
--- NOTE | 2024-11-27 08:02 | PM.CONSULT ---
Providers/Reason For Consult Consulting Physician/Specialty*: General Surgery Reason for Consult*: Acute diverticulitis with perforation Attending Physician: Tony Botello MD Primary Care Provider: Greg Dean MD History of Present Illness History of Present Illness Greg Landon is a 49 year old male who presents to the hospital with abdominal pain in the left lower quadrant, according to the patient 2 days ago he has episodes of GI bleed and after that he started having pain in the left lower quadrant. Denies fever or chills. A CT scan was done and showed evidence of contained perforated acute diverticulitis. I was consulted for this finding. By the time of my evaluation patient doing much better no significant abdominal pain. Review of Systems General: Reports: 10 or more systems reviewed and unremarkable except in HPI and below Medications/Allergies Home Medications ?Medication ?Instructions ?Recorded ?Confirmed ?Last Taken ?Type sildenafil 100 mg tablet 100 mg PO DAILY PRN sexual 04/23/20 07/18/24 Unknown Rx activity #20 tabs tamsulosin 0.4 mg capsule (Flomax) 0.8 mg (2 x 0.4 mg) PO DAILY #60 04/23/20 07/18/24 Unknown Rx caps celecoxib 200 mg capsule 200 mg PO BID 06/17/24 07/18/24 Unknown History hydroxychloroquine 200 mg tablet mg PO 07/04/24 07/18/24 Unknown History pregabalin 75 mg capsule mg PO 07/04/24 07/18/24 Unknown History lidocaine 5 % topical patch 2 patch topical DAILY #30 ea 07/18/24 07/18/24 Unknown Rx lisinopril 40 mg tablet 40 mg PO DAILY #90 tabs 07/18/24 07/18/24 Unknown Rx Allergies Allergy/AdvReac Type Severity Reaction Status Date / Time No Known Allergies Allergy Verified 07/18/24 11:21 Current Medications Generic Name Dose Route Start Last Admin Trade Name Freq PRN Reason Stop Dose Admin Heparin Sodium (Porcine) 5,000 unit 11/26/24 20:00 11/27/24 07:57 Heparin 5,000 Unit/Ml Inj 1 Ml SUBCUT 5,000 unit Q12H THU Administration Lactated Ringer's 1,000 mls @ 100 mls/hr 11/26/24 20:00 11/26/24 22:18 Lactated Ringers IV Not Given .Q10H THU Piperacillin Sod/Tazobactam 50 mls @ 12.5 mls/hr 11/26/24 20:00 11/27/24 04:18 Sod 3.375 gm/ Sodium Chloride IV 12.5 mls/hr Q8H THU Administration Protocol Morphine Sulfate 2 mg 11/26/24 19:52 11/27/24 04:58 Morphine 4 Mg/Ml Sdv 1 Ml IVP 2 mg Q4H PRN Administration SEVERE PAIN Pantoprazole Sodium 40 mg 11/26/24 20:00 11/26/24 21:03 Pantoprazole 40 Mg Sdv IVP 40 mg Q24H THU Administration PFSH Acute PFSH: Medical History (Updated 11/26/24 @ 19:52 by AUDREY Tate) Fall as cause of accidental injury at home as place of occurrence Right-sided chest wall pain Syncope and collapse Dysphagia Alcohol use disorder Scrotal mass Erectile dysfunction due to diseases classified elsewhere BPH loc w urin obs/LUTS Hypertension Family History Family/Other CAD (coronary artery disease) Hypertension Lung disease Diabetes Social History Smoking and tobacco/nicotine status: never used tobacco/nicotine Alcohol intake: current Alcohol intake frequency: 0-2 Drinks per Day Substance/Drug Use: never Marital status: Single Current occupational status: employed Vitals/I&O/Wt Last Vital Signs Temp 98.7 F 11/27/24 07:45 Pulse 95 11/27/24 07:45 Resp 17 11/27/24 07:45 BP 119/79 11/27/24 07:45 Pulse Ox 93 11/27/24 07:45 O2 Del Method Room Air 11/27/24 07:45 11/26/24 11/27/24 11/27/24 22:59 06:59 14:59 Intake Total 1000 / 1000 50 / 1050 Output Total 300 / 300 Balance 1000 / 1000 -250 / 750 Weight last 48 hrs Weight 164 lb Weight 161 lb Weight 160 lb Weight 160 lb Physical Exam Narrative: Benign abdominal exam abdomen soft nontender nondistended. Data 11/27/24 04:30 11/27/24 04:30 A&P Assessment and plan 1. Diverticulitis: 2. Perforated diverticulum: Plan: 49-year-old male with the first episode of perforated acute diverticulitis with contained perforation, no evidence of abscess. White count has trended down from yesterday to today. His abdominal pain has improved. He will be allowed to have a full liquid diet today, plan is for additional 24 hours or IV antibiotics and then tomorrow he can transition to a GI soft diet before discharge home. He will have to follow-up with colorectal surgery as outpatient to discuss the possibility of an elective sigmoid colectomy to prevent further episodes of complicated diverticulitis. PDMP PDMP Reviewed: Not Reviewed Coding Level of Care Code [facility] Diagnoses Diverticulitis K57.92 Perforated diverticulum K57.80
--- NOTE | 2024-11-27 09:21 | PC.CHAP ---
Pastoral Care Encounter/Spiritual Assessment Type of Contact [] Declined residential sales executive visit [] Patient/Family/Request visit [] Outpatient visit [] Follow-up visit [] Physician referral [] Code/Alert [x] Routine visit [] Staff referral [] Actively dying [] Patient sleeping [] Family support [] [] Out of room [] Palliative care [] [] Receiving care in room [] Pre-surgical visit [] Trauma [] Long length of stay [] ICU visit [] Other: Relational/Emotional Strength [x] Patient feels connected with others/family/visitors/staff [] Distress [] Loneliness/isolation [] Abandonment Spirituality of Patient [] Person of Ese [] Attends Episcopal of their Ese [] Believes in Prayer [] Reads Bible or Scientologist materials [x] There are Spiritual issues to be addressed Hopper Feeder Interventions [] Prayer [x] Active listening [x] Non-anxious presence [x] Spiritual/emotional support [] Crisis/trauma care [] Spiritual counseling [] Bereavement support [] Provided bereavement packet [] Provided Bible/devotional materials [] Provided toy/stuffed animal, coloring book to patient or family member [] Provided Communion [] Anointing/Babb [] Salvation [x] Completed spiritual assessment [] Other: Impact on Illness or Injury [] Angry [] Fearful [] Anxious [] Often cries [] Exhaustion [] Unable to work [] Unable to attend episcopalian [] Unable to walk/stand [] Unable to read [] Unable to drive [] Unable to eat/drink [] Unable to sleep [] Unable to be with family [] Patient intubated [] Other: Summary Time spent with patient 5 min
--- NOTE | 2024-11-27 11:45 | PC.OT ---
PER P.T.; PATIENT IS INDEPENDENT AND DOES NOT REQUIRE SKILLED OT EVALUATION AT THIS TIME. ORDERS D/C
[2024-11-27] MEDS: HYDROcodone-acetaminophen 5-325 mg Tablet 1 TAB PO (14:16)
--- NOTE | 2024-11-27 15:36 | P.PN_ITS ---
Subjective 2 Subjective: Patient was seen this morning, currently alert oriented x 3, following commands, is passing gas from below, he had a bowel movement just before coming to the hospital, no significant abdominal pain, seen by general surgery this morning, placed medically liquid diet Vitals/I&O/Wt Last Vital Signs Temp 98.4 F 11/27/24 11:42 Pulse 85 11/27/24 11:42 Resp 16 11/27/24 11:42 BP 107/75 11/27/24 11:42 Pulse Ox 95 11/27/24 11:42 O2 Del Method Room Air 11/27/24 11:42 11/27/24 11/27/24 11/27/24 06:59 14:59 22:59 Intake Total 50 / 1050 434.166 / 434.166 Output Total 300 / 300 Balance -250 / 750 434.166 / 434.166 Weight last 48 hrs Weight 74.389 kg Weight 73.028 kg Weight 72.575 kg Weight 72.575 kg Physical Exam 2 Const: COMMON NORMALS: no acute distress and patient oriented x3 Resp: COMMON NORMALS: normal respiratory effort, No retractions, No use of accessory muscles and clear to auscultation bilaterally AUSCULTATION: clear to auscultation bilaterally Cardio: COMMON NORMALS: regular rate, regular rhythm, S1 normal heart sound present and S2 normal heart sound present RATE: regular rate RHYTHM: r egular rhythm HEART SOUNDS: S1 normal heart sound present and S2 normal heart sound present GI: OTHER: Abdomen is soft, slightly distended, good bowel sounds, no guarding, no rebound, no rigidity Extremity: COMMON NORMALS: no pedal edema Neuro: COMMON NORMALS: patient oriented x3 Psych: COMMON NORMALS: mental status grossly normal Data 11/27/24 04:30 11/27/24 04:30 A&P Assessment and plan 1. Perforated diverticulum: CT/CT abdomen pelvis w con* [id number] IMPRESSION: 1. Acute, perforated sigmoid diverticulitis with no abscess. 2. Nonobstructive nephrolithiasis. Plan - Currently clinically liquid diet - IV Zosyn - De-escalate IV fluids 2. Diverticulitis: As mentioned above 3. Benign essential HTN: 4. BPH loc w urin obs/LUTS: 5. Polyarthralgia: Hold Plaquenil 6. Alcohol use disorder: Currently stable, monitor for any signs of withdrawals PDMP PDMP Reviewed: Not Reviewed Attestations 2 Medical Necessity Statement*: Patient requires hospitalization for perforated diverticulitis Diagnoses Perforated diverticulum K57.80 Diverticulitis K57.92 Benign essential HTN I10 BPH loc w urin obs/LUTS N40.1 Polyarthralgia M25.50 Alcohol use disorder F10.90
[2024-11-27] MEDS: pantoprazole 40 mg SDV IVP (21:22)
--- NOTE | 2024-11-27 21:57 | P.PN_ITS ---
Subjective 2 Subjective: Patient with diverticulitis with interval improvement Vitals/I&O/Wt Last Vital Signs Temp 98.2 F 11/27/24 19:53 Pulse 85 11/27/24 19:53 Resp 18 11/27/24 19:53 BP 128/71 11/27/24 19:53 Pulse Ox 91 11/27/24 19:53 O2 Del Method Room Air 11/27/24 19:53 11/27/24 11/27/24 11/27/24 06:59 14:59 22:59 Intake Total 50 / 1050 434.166 / 906.787 5912.167 / 1818.333 Output Total 300 / 300 Balance -250 / 750 434.166 / 381.535 7560.167 / 1818.333 Weight last 48 hrs Weight 74.389 kg Weight 73.028 kg Weight 72.575 kg Weight 72.575 kg Physical Exam 2 Narrative: Patient is doing okay with clobetasol on no pain pain management in place HEENT normocephalic atraumatic neck neck is supple cardiovascular heart rate is regular lungs are pretty much clear abdomen soft slight tenderness left lower quadrant. Extremities are intact no edema has good pulses neurology has no focality lab studies lab studies reviewed and noted. White count had come down to normal chemistries unremarkable except for slightly elevated creatinine Data 11/27/24 04:30 11/27/24 04:30 A&P Assessment and plan 1. Perforated diverticulum: 2. Diverticulitis: PDMP PDMP Reviewed: Not Reviewed Coding Level of Care Code 49831 Diagnoses Perforated diverticulum K57.80 Diverticulitis K57.92 Time Spent (min) 40
[2024-11-28] MEDS: piperacillin-tazobactam 3.375 GM in sodium chloride 0.9% (plus) 50 ML IV (03:46)
[2024-11-28] MEDS: HYDROcodone-acetaminophen 5-325 mg Tablet 1 TAB PO (03:46)
[2024-11-28 04:00] VITALS: BP 106/73; PULSE 84; RESP 16; TEMP 37.2; O2SAT 92
[2024-11-28 04:46] LABS: Hematocrit 44.4 % (37-53); Hemoglobin 14.80 g/dL (11.27-16.99); Mean Corpuscular HGB Conc 33.3 g/dL (30-55); Mean Corpuscular Hemoglobin 30.2 pg (27-33); Mean Corpuscular Volume 90.6 fl (82-101); Nucleated Red Blood Cells % 0 %; Platelet Count 225 10^3/cmm (157-399); Red Blood Count 4.90 10^6/uL (3.85-5.65); White Blood Count 7.21 10^3/uL (3.29-11.43)
[2024-11-28 05:10] LABS: Alanine Aminotransferase 11 U/L (0-41); Albumin Level 3.2 g/dL (3.5-5.2); Alkaline Phosphatase 85 U/L (40-130); Anion Gap 16.1 (5-19); Aspartate Amino Transferase 11 U/L (0-40); Blood Urea Nitrogen 7 mg/dL (6-20); Calcium 8.4 mg/dL (8.5-10.5); Carbon Dioxide 22 mmol/L (22-29); Chloride 102 mmol/L (98-107); Creatinine Clr Calc Pharmacy 64.9293; Globulin 2.7 g/dL (1.3-4.6); Glucose 109 mg/dL (65-115); Osmolality Calculated 281 mOsm/kg (285-295); Potassium 4.1 mmol/L (3.5-5.1); Sodium 136 mmol/L (136-145); Total Protein 5.9 g/dL (6.6-8.7)
[2024-11-28 07:28] VITALS: BP 110/69; PULSE 68; RESP 16; TEMP 36.6; O2SAT 96
--- NOTE | 2024-11-28 07:33 | PM.PN ---
Subjective Subjective: Excellent progression over the last 24 hours. No abdominal pain, normal vital signs, normal white count. Tolerating full liquid diet. Vitals/I&O/Wt Last Vital Signs Temp 97.8 F 11/28/24 07:28 Pulse 68 11/28/24 07:28 Resp 16 11/28/24 07:28 BP 110/69 11/28/24 07:28 Pulse Ox 96 11/28/24 07:28 O2 Del Method Room Air 11/28/24 07:28 11/27/24 11/28/24 11/28/24 22:59 06:59 14:59 Intake Total 1384.167 / 1818.333 50 / 1868.333 Output Total Balance 1384.167 / 1818.333 49 / 1867.333 Weight last 48 hrs Weight 165 lb 6 oz Weight 165 lb 6 oz Weight 164 lb Weight 161 lb Weight 160 lb Weight 160 lb Physical Exam GI: OTHER: Benign abdominal exam abdomen soft nontender nondistended Data 11/28/24 04:33 11/28/24 04:33 A&P Assessment and plan 1. Diverticulitis: 2. Perforated diverticulum: Plan: Excellent progression, patient can be advanced to a GI soft diet today and he is cleared for discharge from the general surgery standpoint. He can follow-up with me in a couple weeks but the ultimate plan will be to refer him to a colorectal surgeon to discuss the possibility of an elective sigmoid colectomy to prevent further episodes of complicated diverticulitis. Patient shows understanding agrees with the plan. PDMP PDMP Reviewed: Not Reviewed Attestations Medical Necessity Statement*: Per medical Coding Level of Care Code Acute Code for [facility] Diagnoses Diverticulitis K57.92 Perforated diverticulum K57.80
[2024-11-28] MEDS: heparin 5,000 unit/mL INJ 1 mL 5000 UNIT SUBCUT (07:50)
--- NOTE | 2024-11-28 11:00 | P.DS_ITS ---
Discharge Providers Date of Admission: 11/26/24 19:52 Date of Discharge: November 28, 2024 Attending Provider at Admission: Sam Perkins MD Attending Provider at Discharge: Tony Botello MD Primary Care Provider: Greg Dean MD Diagnoses at Discharge Discharge Diagnosis 1. Diverticulitis: 2. Perforated diverticulum: Reason for Visit Reason for Visit: abd pain, n/d Hospital Course Hospital Course This is a 49-year-old male with a past medical history of hypertension, arthri tis on Plaquenil, hyperlipidemia, BPH who presents [facility] for abdominal pain Perforated diverticulum: CT/CT abdomen pelvis w con* [id number] IMPRESSION: 1. Acute, perforated sigmoid diverticulitis with no abscess. 2. Nonobstructive nephrolithiasis. -General surgery consulted - Initial management with clear liquid diet, diet was slowly advanced GI soft diet - Managed with IV Zosyn - Management with IV fluids - Overall clinically proved, having several bowel movements, no blood black stools, passing gas, no abdominal pain, no fevers, - Will be discharged home on GI soft and low fiber diet - Discharge with oral antibiotics - Follow-up with general surgery as outpatient - If any recurrent abdominal pain, or nausea or vomiting or fevers go to the emergency room Physical Exam Const: COMMON NORMALS: no acute distress and patient oriented x3 Resp: COMMON NORMALS: normal respiratory effort, No retractions, No use of accessory muscles and clear to auscultation bilaterally AUSCULTATION: clear to auscultation bilaterally Cardio: COMMON NORMALS: regular rate, regular rhythm, S1 normal heart sound p resent and S2 normal heart sound present RATE: regular rate RHYTHM: regular rhythm HEART SOUNDS: S1 normal heart sound present and S2 normal heart sound present GI: COMMON NORMALS: Normal to inspection, nondistended, normoactive bowel sounds present, Soft to palpation and non-tender INSPECTION: Yes normal to inspection AUSCULTATION: Yes normoactive bowel sounds PALPATION: Yes Soft to palpation PERCUSSION: normal to percussion OTHER: No guarding, no rebound, no rigidity Extremity: COMMON NORMALS: no calf tenderness and no pedal edema Neuro: COMMON NORMALS: patient oriented x3 Psych: COMMON NORMALS: mental status grossly normal Discharge Data Studies Completed and Pending Completed Studies During Hospitalization Category Date Time Status CT abdomen pelvis w con* [id number] Urgent Cat Scan 11/26/24 18:16 Completed Pending at discharge Category Date Time Status Complete Blood Count w/Auto AM LABS Lab 11/29/24 04:00 Ordered Complete Blood Count w/Auto AM LABS Lab 11/30/24 04:00 Ordered Comprehensive Metabolic Panel AM LABS Lab 11/29/24 04:00 Ordered Comprehensive Metabolic Panel AM LABS Lab 11/30/24 04:00 Ordered Radiology Impressions Abdomen/Pelvis CT 11/26/24 18:16 IMPRESSION: 1. Acute, perforated sigmoid diverticulitis with no abscess. 2. Nonobstructive nephrolithiasis. ADDENDUM: 11/26/24 194 ADDENDUM: THIS REPORT CONTAINS FINDINGS THAT MAY BE CRITICAL TO PATIENT CARE. The findings were verbally communicated via telephone conference with CHARLOTTE AKHTAR at 7:39 PM CDT on 11/26/2024. The findings were acknowledged and understood. Laboratory Results WBC 7.21 10^3/uL (3.29-11.43) 11/28/24 04:33 RBC 4.90 10^6/uL (3.85-5.65) 11/28/24 04:33 Hgb 14.80 g/dL (11.27-16.99) 11/28/24 04:33 Hct 44.4 % (37-53) 11/28/24 04:33 MCV 90.6 fl (82-101) 11/28/24 04:33 MCH 30.2 pg (27-33) 11/28/24 04:33 MCHC 33.3 g/dL (30-55) 11/28/24 04:33 RDW 12.3 % (12.1-15.1) 11/28/24 04:33 Plt Count 225 10^3/cmm (157-399) 11/28/24 04:33 MPV 10.3 fL (7.4-10.4) 11/28/24 04:33 Neut % (Auto) 72.3 % 11/28/24 04:33 Lymph % (Auto) 19.1 % 11/28/24 04:33 [place]es % (Auto) 6.5 % 11/28/24 04:33 Eos % (Auto) 1.2 % 11/28/24 04:33 Baso % (Auto) 0.6 % 11/28/24 04:33 Neut # (Auto) 5.21 10^3/uL (1.8-7.7) 11/28/24 04:33 Lymph # (Auto) 1.4 10^3/uL (0.8-4.8) 11/28/24 04:33 [place]es # (Auto) 0.5 10^3/uL (0.2-0.9) 11/28/24 04:33 Eos # (Auto) 0.1 10^3/uL (0.0-0.8) 11/28/24 04:33 Baso # (Auto) 0.0 10^3/uL (0.0-0.1) 11/28/24 04:33 Nucleated RBC % (auto) 0 % 11/28/24 04:33 Nucleated RBCs # 0.0 /100WBC 11/28/24 04:33 Sodium 136 mmol/L (136-145) 11/28/24 04:33 Potassium 4.1 mmol/L (3.5-5.1) 11/28/24 04:33 Chloride 102 mmol/L (98-107) 11/28/24 04:33 Carbon Dioxide 22 mmol/L (22-29) 11/28/24 04:33 Anion Gap 16.1 (5-19) 11/28/24 04:33 BUN 7 mg/dL (6-20) 11/28/24 04:33 Creatinine 1.3 mg/dL (0.7-1.2) H 11/28/24 04:33 GFR Calculation 58.2 mL/min (90-130) L 11/28/24 04:33 Glucose 109 mg/dL (65-115) 11/28/24 04:33 Calculated Osmolality 281 mOsm/kg (285-295) L 11/28/24 04:33 Lactic Acid 1.1 mmol/L (0.5-2.2) 11/26/24 16:51 Calcium 8.4 mg/dL (8.5-10.5) L 11/28/24 04:33 Total Bilirubin 0.7 mg/dL (0.15-1.2) 11/28/24 04:33 AST 11 U/L (0-40) 11/28/24 04:33 ALT 11 U/L (0-41) 11/28/24 04:33 Alkaline Phosphatase 85 U/L (40-130) 11/28/24 04:33 C-Reactive Protein 174.8 mg/L (0.0-4.9) H 11/26/24 16:51 Total Protein 5.9 g/dL (6.6-8.7) L 11/28/24 04:33 Albumin 3.2 g/dL (3.5-5.2) L 11/28/24 04:33 Globulin 2.7 g/dL (1.3-4.6) 11/28/24 04:33 Lipase 15 U/L (13-60) 11/26/24 16:51 Urine Color [place] (Yellow) A 11/27/24 06:00 Urine Appearance Clear (CLEAR) 11/27/24 06:00 Urine pH 6.0 (5-7) 11/27/24 06:00 Ur Specific [place] 1.086 (1.005-1.030) H 11/27/24 06:00 Urine Protein Trace (Negative) A 11/27/24 06:00 Urine Glucose (UA) Negative (Normal) 11/27/24 06:00 Urine Ketones 1+ (Negative) H 11/27/24 06:00 Urine Blood Negative (Negative) 11/27/24 06:00 Urine Nitrate Negative (Negative) 11/27/24 06:00 Urine Bilirubin Negative (Negative) 11/27/24 06:00 Urine Urobilinogen 1.0 mg/dL (Negative) 11/27/24 06:00 Ur Leukocyte Esterase Negative (Negative) 11/27/24 06:00 Urine RBC None /hpf (0-2) 11/27/24 06:00 Urine WBC Rare /hpf (0-5) 11/27/24 06:00 Ur Squamous Epith Cells None /hpf (0-5) 11/27/24 06:00 Amorphous Sediment Not Reportable 11/27/24 06:00 Urine Bacteria None /hpf (NONE) 11/27/24 06:00 Vitals Last Vital Signs Temp 97.8 F 11/28/24 07:28 Pulse 68 11/28/24 07:28 Resp 16 11/28/24 07:28 BP 110/69 11/28/24 07:28 Pulse Ox 96 11/28/24 07:28 O2 Del Method Room Air 10/02/25 07:28 Discharge Plan Discharge Patient Disposition: Home Condition: Stable Prescriptions: New hydrocodone-acetaminophen 5-325 mg Tablet 1 tab PO Q6H PRN (Reason: Moderate To Severe Pain) 5 Days Qty: 20 0RF ciprofloxacin HCl 500 mg tablet 500 mg PO BID 7 Days Qty: 14 0RF metronidazole 500 mg tablet 500 mg PO Q8H 7 Days Qty: 21 0RF Continued tamsulosin [Flomax] 0.4 mg capsule 0.8 mg PO DAILY Qty: 60 12RF lidocaine 5 % adhesive patch,medicated 2 patch topical DAILY Qty: 30 1RF Rx Instructions: leave on most painful area for up to 12 hrs lisinopril 40 mg tablet 40 mg PO DAILY Qty: 90 1RF pregabalin 75 mg capsule 75 mg PO Q12H sildenafil 50 mg tablet 50 mg PO DAILY PRN (Reason: Erectile Dysfunction) Rx Instructions: TAKE ONE TABLET BY MOUTH ONE TIME DAILY NEEDED FOR ERECTILE DYSFUNCTION. pantoprazole 40 mg tablet,delayed release (DR/EC) 40 mg PO BID Held hydroxychloroquine 200 mg tablet 400 mg PO DAILY Hold Instructions: Resume on 01/27/25. hols until you see rheumatology Discontinued celecoxib 200 mg capsule 200 mg PO BID Discharge Order = DC NOW: Discharge Order (Routine); Ordered 11/28/24 Ordered By: Tony Botello Referrals: Charlotte Valladares MD [Physician, General Surgery] - 1-3 days Greg Dean MD [Primary Care Provider, Family Practice] Discharge Diet: GI Soft Discharge Activity: Resume usual activity Patient Instructions: Diverticulitis (DC), Diverticulosis Diet (GEN), Opioid Safety, Patient Portal & Julio Instructions Activity Restrictions/Additional Instructions: - If any recurrent abdominal pain please go to emergency room - If any fevers, vomiting please go to emergency room - Please take antibiotics as prescribed - Please drink plenty of electrolyte balanced fluids - Adhere to GI soft diet, low in fiber Discharge Attestations Time Spent in Discharge Care*: greater than 30 min Quality Metrics Clinical Quality Measures [ No reported AMI, CVA or VTE this stay] Coding Level of Care Code 24807 Total time (in minutes) for Discharge: 45 Diagnoses Diverticulitis K57.92 Perforated diverticulum K57.80
[2024-11-28 11:27] VITALS: BP 128/85; PULSE 80; RESP 18; TEMP 36.6; O2SAT 95
[2024-11-28 12:23] VITALS: BP 128/85; PULSE 80; RESP 18; TEMP 36.6; O2SAT 95
== END 2024-11-28 12:36 | disposition home or self-care (01) | DRG 392 ==
LOC: ER 22:15 → MEDSURG 22:25
PROVIDERS: Emergency Medicine; Admitting Provider Student in an Organized Health Care Education/Training Program; Emergency Provider Physician Assistant; PCP Family Medicine; Visit Provider Family Medicine
DX: K57.20 Diverticulitis of large intestine with perforation and abscess without bleeding (principal); I10 Essential (primary) hypertension; M25.50 Pain in unspecified joint; E78.5 Hyperlipidemia, unspecified; N40.1 Benign prostatic hyperplasia with lower urinary tract symptoms; F10.90 Alcohol use, unspecified, uncomplicated; K43.9 Ventral hernia without obstruction or gangrene; N52.9 Male erectile dysfunction, unspecified
CPT/HCPCS: 36415; 74177; 80053; 81001; 83605; 83690; 85025; 86140; 96365; 96367; 96372; 96375; 99285; J1644; J2270; J2405; J2470; J2543; J7030; J7120; J9999